=== PATIENT | female | born 1985 | race African-American/Black ===

== ENCOUNTER → 2017-09-10 | Outpatient (CLI) | payer SELFPAY ==
--- NOTE | 2017-09-10 17:25 | RADIOLOGY REPORT (SQ) ---
EXAM DESCRIPTION: U/S OB TRANSVAGINAL W/O DOP COMPLETED DATE/TIME: 09/10/2017 3:30 pm REASON FOR STUDY: ENCOUNTER FOR SUPERVISION OF OTHER NORMAL , FIRST TRIMESTER Z34.81 ENCOU NTER FOR SUPRVSN OF NORMAL , FIRST TRIM COMPARISON: None. TECHNIQUE: Transvaginal static and realtime grayscale images acquired of the pelvis. Additional yoly cted spectral and color Doppler images recorded. All images stored on PACs. bHCG: Not available. LIMITATIONS: None. FINDINGS: No intrauterine gestation is seen. UTERUS: 8.8 x 5.8 x 4.2 cm. No masses or anomalies. Endometrium measures 11 mm. CERVICAL LENGTH: Not applicable. Less than 6 weeks. Closed. RIGHT ADNEXA: 3.5 x 3.5 x 2.9 cm. Contains a 2.8 x 3 x 2.3 cm complex cyst. No adnexal free fluid. No adnexal masses. LEFT ADNEXA: Not seen. No adnexal free fluid. No adnexal masses. FREE FLUID: None. OTHER: No other significant finding. IMPRESSION: There is no intrauterine gestation. There is a 2.8 x 3.0 x 2.3 cm complex cyst on the right ovary. (if there is still a positive pregnan cy test then certainly an ectopic cannot be excluded.) TECHNICAL DOCUMENTATION: JOB ID: [id number] [employer]- All Rights Reserved
== END ==
LOC: RAD 14:50
PROVIDERS: ATTEND Nurse Practitioner Women's Health
DX: Z34.81 Encounter for supervision of other normal pregnancy, first trimester (principal)
CPT/HCPCS: 76817

== ENCOUNTER 2018-06-05 07:12 | Emergency (ER) | payer SELFPAY ==
[2018-06-05 08:05] LABS: ABSOLUTE EOSINOPHILS # (AUTO) 0.3 10^3/uL (0.0-0.6); ABSOLUTE LYMPHOCYTES (AUTO) 1.4 10^3/uL (0.5-4.7); ABSOLUTE MONOCYTES (AUTO) 0.5 10^3/uL (0.1-1.4); ABSOLUTE NEUT (AUTO) 5.2 10^3/uL (1.7-8.2); BASOPHILS % (AUTO) 0.5 % (0-2); EOSINOPHILS % (AUTO) 3.4 % (0-6); HEMATOCRIT 35.9 % (36.0-47.0); HEMOGLOBIN 12.4 g/dL (12.0-15.5); LYMPHOCYTES % (AUTO) 18.6 % (13-45); MEAN CORPUSCULAR HEMOGLOBIN 29.6 pg (27.0-33.4); MEAN CORPUSCULAR HGB CONC 34.4 g/dL (32.0-36.0); MEAN CORPUSCULAR VOLUME 86 fl (80-97); PLATELET COUNT 211 10^3/uL (150-450); RED BLOOD COUNT 4.17 10^6/uL (3.72-5.28); RED CELL DISTRIBUTION WIDTH 15.1 % (11.5-14.0); SEGMENTED NEUTROPHILS % (AUTO) 70.5 % (42-78); TOTAL CELLS COUNTED % (AUTO) 100 %; WHITE BLOOD COUNT 7.4 10^3/uL (4.0-10.5)
[2018-06-05 08:19] LABS: ANION GAP 10 (5-19); BLOOD UREA NITROGEN 14 mg/dL (7-20); CALCIUM 9.2 mg/dL (8.4-10.2); CARBON DIOXIDE 27 mmol/L (22-30); CHLORIDE 107 mmol/L (98-107); GLUCOSE 82 mg/dL (75-110); SODIUM 144.1 mmol/L (137-145)
[2018-06-05 09:04] LABS: APPEARANCE,URINE SLIGHTLY-CLOUDY; BILIRUBIN,URINE NEGATIVE (NEGATIVE); COLOR,URINE YELLOW; GLUCOSE, URINE NEGATIVE (NEGATIVE); KETONES,URINE NEGATIVE (NEGATIVE); LEUKOCYTE ESTERASE,URINE NEGATIVE (NEGATIVE); NITRITE,URINE NEGATIVE (NEGATIVE); PROTEIN,URINE NEGATIVE (NEGATIVE); URINE SPECIFIC GRAVITY 1.021
--- NOTE | 2018-06-05 09:47 | RADIOLOGY REPORT (SQ) ---
EXAM DESCRIPTION: U/S OB TRANSVAGINAL W/O DOP COMPLETED DATE/TIME: 06/05/2018 9:31 am REASON FOR STUDY: llq pain, hcg positive, hx ectopic COMPARISON: None. TECHNIQUE: Transvaginal static and realtime grayscale images acquired of the pelvis. Additional yoly cted spectral and color Doppler images recorded. All images stored on PACs. BHC.75 LIMITATIONS: None. FINDINGS: UTERUS: No visualized intrauterine . RIGHT ADNEXA: Normal ovary with normal vascular flow. No adnexal free fluid. No adnexal masses. LEFT ADNEXA: Normal ovary with normal vascular flow. No adnexal free fluid. No adnexal masses. FREE FLUID: Small volume of free fluid OTHER: No other significant finding. IMPRESSION: NO VISUALIZED INTRA- OR EXTRAUTERINE . ECTOPIC CANNOT BE EXCLUDED. Particularly since there is a history of ectopic . FOLLOW-UP ULTRASOUND AND SERIAL BHCG LEVELS STRONGLY RECOMMENDED TO ACCURATELY ASSESS STATU S. TECHNICAL DOCUMENTATION: JOB ID: [id number] [employer]- All Rights Reserved Reading location - IP/workstation name: [email or web address]
--- NOTE | 2018-06-05 09:54 | ER Document Report ---
ED GI/ - General Chief Complaint: Vag Bleeding, +preg <12wks Stated Complaint: CRAMPING/BLEEDING Time Seen by Provider: 06/05/18 07:31 Mode of Arrival: Ambulatory Information source: Patient Notes: Patient is a 32-year-old female who presents to the ER today for 2 weeks of spotting after having what she believed was a normal period 2 weeks ago. Patient states that she has irregular periods and so was not surprised when she got her menstrual cycle 2 weeks ago, however states that she has been lightly spotting since the menstrual cycle was supposed to have ended. Patient admits to some left lower quadrant cramping as well. Patient did take test at home which was positive. Patient has a history of 1 ectopic and one miscarriage along with one living child. Patient still has both of her tubes, states that they gave her methotrexate with the previous ectopic. TRAVEL OUTSIDE OF THE [place] IN LAST 30 DAYS: No - Related Data Allergies/Adverse Reactions: No Known Allergies Allergy (Unverified 06/05/18 08:09) Past Medical History - General Information source: Patient - Social History Smoking Status: Never Smoker Chew tobacco use (# tins/day): No Frequency of alcohol use: None Drug Abuse: None Family History: Reviewed & Not Pertinent Patient has suicidal ideation: No Patient has homicidal ideation: No Renal/ Medical History: Denies: Hx Peritoneal Dialysis Review of Systems - Review of Systems Constitutional: No symptoms reported EENT: No symptoms reported Cardiovascular: No symptoms reported Respiratory: No symptoms reported Gastrointestinal: No symptoms reported Genitourinary: No symptoms reported Female Genitourinary: See HPI Musculoskeletal: No symptoms reported Skin: No symptoms reported Hematologic/Lymphatic: No symptoms reported Neurological/Psychological: No symptoms reported Physical Exam - Vital signs Vitals: Temp Pulse Resp BP Pulse Ox 97.8 F 81 16 104/60 100 06/05/18 07:18 06/05/18 07:18 06/05/18 07:18 06/05/18 07:18 06/05/18 07:18 - Notes Notes: PHYSICAL EXAMINATION: GENERAL: Well-appearing and in no acute distress. HEAD: Atraumatic, normocephalic. EYES: Pupils equal round and reactive to light, extraocular movements intact, sclera anicteric, conjunctiva are normal. NECK: Normal range of motion, supple without lymphadenopathy LUNGS: CTAB and equal. No wheezes rales or rhonchi. HEART: Regular rate and rhythm without murmurs ABDOMEN: Soft, no tenderness. No guarding, no rebound BACK: no vertebral tenderness, normal ROM GI/: no CVA tenderness EXTREMITIES: Normal range of motion, no pitting edema. No cyanosis. NEUROLOGICAL: Cranial nerves grossly intact. Normal sensory/motor exams. PSYCH: Normal mood, normal affect. SKIN: Warm, Dry, normal turgor, no rashes or lesions noted Course - Re-evaluation Re-evalutation: 06/05/18 10:05 Patient looks very well and has no tenderness on abdominal exam to the left lower quadrant or otherwise, hCG is 415 today. Ultrasound was performed due to history of ectopic and complaint of left lower quadrant pain, however was to early to see anything in the tubes or uterus. Patient given a signed order to come back in 2 days for repeat hCG and was told to check back and if she was still having pain at that time or if the pain had worsened to the left lower quadrant. Patient understands that she still may have an ectopic . Patient was given women's health information to follow-up with. Patient happy with plan. - Vital Signs Vital signs: Temp Pulse Resp BP Pulse Ox 97.8 F 81 16 104/60 100 06/05/18 07:18 06/05/18 07:18 06/05/18 07:18 06/05/18 07:18 06/05/18 07:18 - Laboratory Result Diagrams: 06/05/18 07:50 06/05/18 07:50 Laboratory results interpreted by me: 06/05/18 06/05/18 06/05/18 07:50 07:50 08:47 Hct 35.9 L RDW 15.1 H Beta HCG, Quant 415.75 H Urine Blood MODERATE H Urine Urobilinogen 2.0 H Urine Ascorbic Acid 40 H Discharge - Discharge Clinical Impression: Positive blood test, LLQ pain Condition: Stable Disposition: HOME, SELF-CARE Additional Instructions: Return immediately for any new or worsening symptoms. Follow up with primary care provider, call tomorrow to make followup appointment. Return in 2 days for repeat lab draw to check your levels. Return immediately if you have worsening pain to the left lower abdomen. Forms: Follow-Up Laboratory Testing Referrals: [facility] [Provider Group] - Follow up as needed
[2018-06-05 10:04] VITALS: BP 103/59
== END 2018-06-05 10:04 | disposition home or self-care (01) ==
LOC: ER 07:12
DX: O46.91 Antepartum hemorrhage, unspecified, first trimester (principal); R10.32 Left lower quadrant pain; Z3A.00 Weeks of gestation of pregnancy not specified
CPT/HCPCS: 36415; 76817; 80048; 81001; 84702; 85025; 86900; 86901; 99284

== ENCOUNTER 2018-06-16 15:39 | Emergency (ER) | payer SELFPAY ==
--- NOTE | 2018-06-16 16:19 | ER Document Report ---
ED Medical Screen (RME) - General Chief Complaint: Abdominal Pain Stated Complaint: ABDONIMAL PAIN Time Seen by Provider: 06/16/18 16:06 Notes: RAPID MEDICAL EVALUATION DISCLOSURE I have seen this patient as part of a Rapid Medical Evaluation and, if applicable, placed any initially appropriate orders. The patient will be seen and fully evaluated, including a full history and physical exam, by a provider ( in Main ED or Fast Track) when a room becomes available. 32-year-old female here with several weeks of abdominal pain, left lower, and vaginal bleeding, now resolved, and was sent here by her [employer]INEER for "abnormal hormone levels". She has a history of ectopic and was seen here several weeks ago for possible ectopic however the ultrasound did not show any abnormalities. EXAM No appreciable abdominal TTP TRAVEL OUTSIDE OF THE [place] IN LAST 30 DAYS: No - Related Data Allergies/Adverse Reactions: No Known Allergies Allergy (Unverified 06/05/18 08:09) Past Medical History - Social History Chew tobacco use (# tins/day): No Frequency of alcohol use: None Drug Abuse: None Renal/ Medical History: Denies: Hx Peritoneal Dialysis Past Surgical History: Reports: Hx Section Physical Exam - Vital signs Vitals: Temp Pulse Resp BP Pulse Ox 98.7 F 83 16 110/62 99 06/16/18 15:58 06/16/18 15:58 06/16/18 15:58 06/16/18 15:58 06/16/18 15:58 Course - Vital Signs Vital signs: Temp Pulse Resp BP Pulse Ox 98.7 F 83 16 110/62 99 06/16/18 15:58 06/16/18 15:58 06/16/18 15:58 06/16/18 15:58 06/16/18 15:58
[2018-06-16 17:00] LABS: ABSOLUTE EOSINOPHILS # (AUTO) 0.2 10^3/uL (0.0-0.6); ABSOLUTE LYMPHOCYTES (AUTO) 1.6 10^3/uL (0.5-4.7); ABSOLUTE MONOCYTES (AUTO) 0.6 10^3/uL (0.1-1.4); ABSOLUTE NEUT (AUTO) 6.6 10^3/uL (1.7-8.2); BASOPHILS % (AUTO) 0.3 % (0-2); EOSINOPHILS % (AUTO) 2.7 % (0-6); HEMATOCRIT 37.2 % (36.0-47.0); HEMOGLOBIN 12.4 g/dL (12.0-15.5); LYMPHOCYTES % (AUTO) 17.8 % (13-45); MEAN CORPUSCULAR HEMOGLOBIN 29.1 pg (27.0-33.4); MEAN CORPUSCULAR HGB CONC 33.4 g/dL (32.0-36.0); MEAN CORPUSCULAR VOLUME 87 fl (80-97); MONOCYTES % (AUTO) 6.1 % (3-13); PLATELET COUNT 269 10^3/uL (150-450); RED BLOOD COUNT 4.26 10^6/uL (3.72-5.28); RED CELL DISTRIBUTION WIDTH 15.2 % (11.5-14.0); SEGMENTED NEUTROPHILS % (AUTO) 73.1 % (42-78); TOTAL CELLS COUNTED % (AUTO) 100 %; WHITE BLOOD COUNT 9.1 10^3/uL (4.0-10.5)
[2018-06-16 17:23] LABS: ANION GAP 12 (5-19); BLOOD UREA NITROGEN 11 mg/dL (7-20); CALCIUM 9.8 mg/dL (8.4-10.2); CARBON DIOXIDE 29 mmol/L (22-30); CHLORIDE 103 mmol/L (98-107); GLUCOSE 77 mg/dL (75-110); POTASSIUM 4.3 mmol/L (3.6-5.0); SODIUM 143.5 mmol/L (137-145)
[2018-06-16 17:24] LABS: AMORPHOUS SEDIMENT,URINE TRACE /HPF; APPEARANCE,URINE CLOUDY; BILIRUBIN,URINE NEGATIVE (NEGATIVE); COLOR,URINE YELLOW; GLUCOSE, URINE NEGATIVE (NEGATIVE); KETONES,URINE NEGATIVE (NEGATIVE); LEUKOCYTE ESTERASE,URINE NEGATIVE (NEGATIVE); NITRITE,URINE NEGATIVE (NEGATIVE); PROTEIN,URINE NEGATIVE (NEGATIVE); URINE SPECIFIC GRAVITY 1.017; UROBILINOGEN,URINE NEGATIVE mg/dL (<2.0)
--- NOTE | 2018-06-16 17:33 | RADIOLOGY REPORT (SQ) ---
EXAM DESCRIPTION: U/S OB TRANSVAGINAL W/O DOP COMPLETED DATE/TIME: 06/16/2018 5:16 pm REASON FOR STUDY: sent by OB for ?ectopic COMPARISON: None. TECHNIQUE: Transvaginal and transabdominal static and realtime grayscale images acquired of the pelv is. Additional selected spectral and color Doppler images recorded. All images stored on PACs. BHCG: Not available. LIMITATIONS: None. FINDINGS: UTERUS: No visualized intrauterine . RIGHT ADNEXA: Normal ovary with normal vascular flow. No adnexal free fluid. No adnexal masses. LEFT ADNEXA: Normal ovary with normal vascular flow. No adnexal free fluid. Nonspecific echogenic area adjacent to the left ovary. Measures 1.8 cm. No clearcut vascular flow. FREE FLUID: Free fluid in the cul de sac. Fluid within the cervix. OTHER: No other significant finding. IMPRESSION: NO VISUALIZED INTRA- OR EXTRAUTERINE . bHCG LEVEL NOT AVAILABLE FOR CORRELATION WITH US FINDINGS. ECTOPIC CANNOT BE EXCLUDED. Questionable area in the left adnexum. FOLLOW-UP ULTRASOUND AND SERIAL BHCG LEVELS STRONGLY RECOMMENDED TO ACCURATELY ASSESS STATU S. TECHNICAL DOCUMENTATION: JOB ID: [id number] [employer]- All Rights Reserved Reading location - IP/workstation name: [email or web address]
--- NOTE | 2018-06-16 19:40 | ER Document Report ---
ED General - General Chief Complaint: Abdominal Pain Stated Complaint: ABDONIMAL PAIN Time Seen by Provider: 06/16/18 16:06 Notes: Patient is a 32-year-old female at unknown gestational age with a history of ectopic who presents with 3 weeks of left lower abdominal pain. She states that there is potential concern of ectopic that she was referred to the emergency department by the women's clinic based on an abnormal trend of her quantitative beta hCG levels. She denies anything is new or different about her symptoms today. She does notice a dull, aching, constant pain to her left lower abdomen. Nothing improves or worsens this pain. She states this does feel somewhat similar when she had an ectopic in the past which was able to be successfully treated with methotrexate. No vaginal bleeding, vaginal discharge, or dysuria. No fever or constitutional symptoms. TRAVEL OUTSIDE OF THE [place] IN LAST 30 DAYS: No - Related Data Allergies/Adverse Reactions: No Known Allergies Allergy (Unverified 06/05/18 08:09) Past Medical History - General Information source: Patient - Social History Smoking Status: Never Smoker Chew tobacco use (# tins/day): No Frequency of alcohol use: None Drug Abuse: None Lives with: Spouse/Significant other Family History: Reviewed & Not Pertinent Patient has suicidal ideation: No Patient has homicidal ideation: No Renal/ Medical History: Denies: Hx Peritoneal Dialysis Past Surgical History: Reports: Hx Section Review of Systems - Review of Systems Notes: Constitutional: Negative for fever. HENT: Negative for sore throat. Eyes: Negative for visual changes. Cardiovascular: Negative for chest pain. Respiratory: Negative for shortness of breath. Gastrointestinal: Positive for abdominal pain Genitourinary: Negative for dysuria. Musculoskeletal: Negative for back pain. Skin: Negative for rash. Neurological: Negative for headaches, weakness or numbness. 10 point ROS negative except as marked above and in HPI. Physical Exam - Vital signs Vitals: Temp Pulse Resp BP Pulse Ox 98.7 F 83 16 110/62 99 06/16/18 15:58 06/16/18 15:58 06/16/18 15:58 06/16/18 15:58 06/16/18 15:58 Interpretation: Normal Notes: PHYSICAL EXAMINATION: GENERAL: Well-appearing, well-nourished and in no acute distress. HEAD: Atraumatic, normocephalic. EYES: Pupils equal round and reactive to light, extraocular movements intact, sclera anicteric, conjunctiva are normal. ENT: nares patent, oropharynx clear without exudates. Moist mucous membranes. NECK: Normal range of motion, supple without lymphadenopathy LUNGS: Breath sounds clear to auscultation bilaterally and equal. No wheezes rales or rhonchi. HEART: Regular rate and rhythm without murmurs ABDOMEN: Soft, nontender, normoactive bowel sounds. No guarding, no rebound. No masses appreciated. EXTREMITIES: Normal range of motion, no pitting or edema. No cyanosis. NEUROLOGICAL: No focal neurological deficits. Moves all extremities spontaneously and on command. PSYCH: Normal mood, normal affect. SKIN: Warm, Dry, normal turgor, no rashes or lesions noted. Course - Re-evaluation Re-evalutation: 06/16/18 19:37 Patient presents with approximately 3 weeks to 1 month of left-sided adnexal tenderness with hCG levels that are not up trending appropriately. Transvaginal ultrasound does show possible abnormal area in the left adnexa. I did discuss with Dr. Issa who agrees that this is an ectopic . She has requested that we do a pharmacy based dose of methotrexate and then the patient will follow-up in 4 days in the women's health clinic for a second dose. The patient is agreeable to this plan. At this time will discharge with return precautions and follow-up recommendations. Verbal discharge instructions given a the bedside and opportunity for questions given. Medication warnings reviewed. Patient is in agreement with this plan and has verbalized understanding of return precautions and the need for primary care follow-up in the next 24-72 hours. - Vital Signs Vital signs: Temp Pulse Resp BP Pulse Ox 98.7 F 70 16 108/65 99 06/16/18 15:58 06/16/18 21:00 06/16/18 21:00 06/16/18 21:00 06/16/18 21:00 - Laboratory Result Diagrams: 06/16/18 16:36 06/16/18 16:36 Laboratory results interpreted by me: 06/16/18 06/16/18 06/16/18 16:33 16:36 16:36 RDW 15.2 H Beta HCG, Quant 1328.00 H Urine Ascorbic Acid 20 H - Diagnostic Test Radiology reviewed: Reports reviewed Discharge - Discharge Clinical Impression: Lower abdominal pain Ectopic Qualifiers: Location of ectopic : unspecified location Intrauterine status: without intrauterine Qualified Code(s): O00.90 - Unspecified ectopic without intrauterine Condition: Good Disposition: HOME, SELF-CARE Additional Instructions: Your seen today for an ectopic on your left side. You were given your first dose of methotrexate here in the emergency department per the instruction of Dr. Issa. You need to follow-up in the women's clinic in 4 days for your repeat dose of methotrexate. Return to the emergency department immediately if you have worsening of your pain, fever greater than 100.4F, bleed through more than 2 pads per hour for more than 2 hours in a row, pass out , have persistent vomiting, or have any other symptoms that are worrisome to you. Referrals: JAMI ISSA MD [ACTIVE STAFF] - 06/20/18
[2018-06-16] MEDS ORDERED: METHOTREXATE SODIUM INJ/PF 50 MG/2 ML IM PRN (19:50)
[2018-06-16 21:59] VITALS: BP 108/65
== END 2018-06-16 21:25 | disposition home or self-care (01) ==
LOC: ER 15:39
DX: O00.90 Unspecified ectopic pregnancy without intrauterine pregnancy (principal)
CPT/HCPCS: 99284; 96372; 36415; 84702; 85025; 80048; 81001; 76817; J9260

== ENCOUNTER 2019-09-15 06:53 | Emergency (ER) | payer SELFPAY ==
--- NOTE | 2019-09-15 07:28 | ER Document Report ---
ED General - General Chief Complaint: Headache Stated Complaint: HEAD,NECK/BACK PAIN Time Seen by Provider: 09/15/19 07:12 Notes: 34-year-old female presents to the ER complaining of several months of neck and back pain. The patient denies any specific trauma or injury. Is complains of generalized aches in her neck and her upper back. The patient denies any extremity numbness tingling or weakness. States occasionally she will get headaches because her neck hurts so bad. She describes it as generalized aching she gets in her neck and back. Denies any blurred vision denies extremity numbness tingling weakness denies chest pain denies shortness of breath denies cough. Denies hematuria or dysuria. [place] fever or chills. TRAVEL OUTSIDE OF THE [place] IN LAST 30 DAYS: No - Related Data Allergies/Adverse Reactions: No Known Allergies Allergy (Verified 05/16/19 16:51) Past Medical History - Social History Smoking Status: Current Every Day Smoker Family History: Reviewed & Not Pertinent Patient has suicidal ideation: No Patient has homicidal ideation: No Renal/ Medical History: Denies: Hx Peritoneal Dialysis Past Surgical History: Reports: Hx Section Review of Systems - Review of Systems Constitutional: denies: Chills, Fever EENT: No symptoms reported Cardiovascular: No symptoms reported Respiratory: No symptoms reported Gastrointestinal: No symptoms reported Musculoskeletal: Back pain, Neck pain Skin: denies: Rash Neurological/Psychological: Headaches -: Yes All other systems reviewed and negative Physical Exam - Vital signs Vitals: Temp Pulse Resp BP Pulse Ox 98.3 F 102 H 16 105/61 99 09/15/19 07:00 09/15/19 07:00 09/15/19 07:00 09/15/19 07:00 09/15/19 07:00 - Notes Notes: GENERAL_APPEARANCE: well_nourished, alert, cooperative, no_acute_distress, no_obvious_discomfort. VITALS: reviewed, see vital signs table. HEAD: no_swelling\tenderness on the head. EYES: PERRL, EOMI, conjunctiva_clear. NOSE: no_nasal_discharge. MOUTH: (-)decreased moisture. THROAT: no_tonsilar_inflammation, no_airway_obstruction. no_lymphadenopathy NECK: supple, diffuse paraspinal_neck_tenderness, (-)thyromegaly. BACK: Diffuse thoracic paraspinal_back_tenderness. CHEST_WALL: no_chest_tenderness. LUNGS: no_wheezing, no_rales, no_rhonchi, (-)accessory muscle use, good air exchange bilateral. HEART: normal_rate, normal_rhythm, normal_S1, normal_S2, (-)S3, (-)S4, no_murmur, no_rub. ABDOMEN: normal_BS, soft, no_abd_tenderness, (-)guarding, (-)rebound, no_organomegaly, no_abd_masses. EXTREMITIES: strength 5/5 in all_extremities, good pulses in all_extremities, no_swelling\tenderness in the extremities, no_edema. SKIN: warm, dry, good_color, no_rash. MENTAL_STATUS: speech_clear, oriented_X_3, normal_affect, responds_appropriately to questions. NEURO: Neg Motor or Sensory Deficits on exam, CN 2-12 intact, DTR 2+ symmetric x 4, No cerbellar signs Course - Re-evaluation Re-evalutation: 09/15/19 07:27 34-year-old female presents with nonspecific neck and upper back pain. We will do some generalized x-rays check a urinalysis. Really there is nothing on exam that is concerning. No neuro deficits. Patient does not have any high risk behavior including IV drug use. Denies fever chills on exam denies night sweats. Denies saddle paresthesias foot drop motor weakness. No numbness or tingling. Suspicion is low for any kind of epidural hematoma or abscess. Suspicion is low for cauda equina syndrome. 09/15/19 09:31 X-ray showed no fractures or other significant abnormalities is a little bit of scoliotic change in the thoracic spine but nothing significant. Patient will be advised follow-up with primary care for further referral if needed will prescribe Flexeril and diclofenac for home. - Vital Signs Vital signs: Temp Pulse Resp BP Pulse Ox 98.3 F 102 H 16 105/61 99 09/15/19 07:00 09/15/19 07:00 09/15/19 07:00 09/15/19 07:00 09/15/19 07:00 - Laboratory Laboratory results interpreted by me: 09/15/19 07:30 Urine Ascorbic Acid 40 H - Diagnostic Test Radiology reviewed: Reports reviewed Radiology results interpreted by me: 09/15/19 09:30 Cervical Spine X-Ray 09/15/19 07:23 IMPRESSION: 1. No fracture or static subluxation of the cervical spine. Disc spaces and vertebral body heights are preserved. 2. No fracture or dislocation of the thoracic spine. Disc spaces and vertebral body heights are preserved. There is a minimal, less than 10 degree dextroscoliosis of the upper thoracic spine, apex approximately T4. 3. Spinal disc and neural foraminal pathology may be further evaluated by MRI if indicated by localizing signs and symptoms. Thoracic Spine X-Ray 09/15/19 07:23 IMPRESSION: 1. No fracture or static subluxation of the cervical spine. Disc spaces and vertebral body heights are preserved. 2. No fracture or dislocation of the thoracic spine. Disc spaces and vertebral body heights are preserved. There is a minimal, less than 10 degree dextroscoliosis of the upper thoracic spine, apex approximately T4. 3. Spinal disc and neural foraminal pathology may be further evaluated by MRI if indicated by localizing signs and symptoms. Discharge - Discharge Clinical Impression: Scoliosis concern Back pain Qualifiers: Back pain location: thoracic back pain Chronicity: acute Back pain laterality: midline Qualified Code(s): M54.6 - Pain in thoracic spine Condition: Good Disposition: HOME, SELF-CARE Instructions: Low Back Pain ([facility]) Prescriptions: Cyclobenzaprine HCl [Flexeril 10 mg Tablet] 10 mg PO TIDP PRN #15 tab PRN Reason: Diclofenac Sodium [Voltaren] 75 mg PO BID PRN #20 tablet.dr BELTRÁN Reason: Pain Scale Of 5
[2019-09-15 08:00] LABS: APPEARANCE,URINE CLOUDY; BILIRUBIN,URINE NEGATIVE (NEGATIVE); COLOR,URINE YELLOW; GLUCOSE, URINE NEGATIVE (NEGATIVE); KETONES,URINE NEGATIVE (NEGATIVE); LEUKOCYTE ESTERASE,URINE NEGATIVE (NEGATIVE); NITRITE,URINE NEGATIVE (NEGATIVE); PROTEIN,URINE NEGATIVE (NEGATIVE); URINE SPECIFIC GRAVITY 1.027; UROBILINOGEN,URINE NEGATIVE mg/dL (<2.0)
--- NOTE | 2019-09-15 09:21 | RADIOLOGY REPORT (SQ) ---
EXAM DESCRIPTION: CERV SP 4 OR 5 VIEWS; T SPINE AP/LAT COMPLETED DATE/TIME: 09/15/2019 9:04 am REASON FOR STUDY: back and neck pain COMPARISON: None. NUMBER OF VIEWS: Five views of the cervical spine, two views of the thoracic spine. TECHNIQUE: AP, lateral, obliques and odontoid radiographic images acquired of the cervical spine. A P and lateral radiographic images acquired of the thoracic spine. LIMITATIONS: None. FINDINGS: MINERALIZATION: Normal. ALIGNMENT: Anatomic alignment of the cervical spine. There is a minimal, less than 10 degree dextros coliosis of the upper thoracic spine, apex approximately T4. VERTEBRAE: Vertebral bodies of normal height. DISCS: No significant osteophytes or sclerosis. Disc height maintained. FORAMINA: No osteophytes or foraminal narrowing. LATERAL AND POSTERIOR ELEMENTS: Facets, lateral masses and spinous processes without significant find ings. HARDWARE: None in the spine. SOFT TISSUES: No masses or calcifications. Lung apices clear. OTHER: No other significant finding. IMPRESSION: 1. No fracture or static subluxation of the cervical spine. Disc spaces and vertebral body heights are preserved. 2. No fracture or dislocation of the thoracic spine. Disc spaces and vertebral body heights are pre served. There is a minimal, less than 10 degree dextroscoliosis of the upper thoracic spine, apex ap proximately T4. 3. Spinal disc and neural foraminal pathology may be further evaluated by MRI if indicated by muriel long signs and symptoms. TECHNICAL DOCUMENTATION: JOB ID: [id number] [employer]- All Rights Reserved Reading location - IP/workstation name: [email or web address]
[2019-09-15 10:06] VITALS: BP 97/60
== END 2019-09-15 10:15 | disposition home or self-care (01) ==
LOC: ER 06:53
DX: M54.6 Pain in thoracic spine (principal); R51 Headache; M54.2 Cervicalgia; M54.9 Dorsalgia, unspecified; F17.200 Nicotine dependence, unspecified, uncomplicated
CPT/HCPCS: 72050; 72070; 81001; 81025; 99284

== ENCOUNTER 2019-10-16 07:57 | Emergency (ER) | payer SELFPAY ==
[2019-10-16] MEDS ORDERED: DEXAMETHASONE SOD PHOS INJ 10 MG/1 ML VIAL IM ONE (09:22)
[2019-10-16] MEDS ORDERED: IPRATROPIUM/ALBUTEROL 0.5-2.5 MG/3 ML AMPUL NEB ONE (09:22)
--- NOTE | 2019-10-16 09:45 | ER Document Report ---
HPI - HPI Time Seen by Provider: 10/16/19 09:01 Pain Level: Denies Context: Healthy 34-year-old female presents with a cough x1 week. Patient states that it started last Saturday and she had a sore throat over the last weekend. Patient states that the cough is persisted and is not productive. Patient denies fevers or chills, denies neck stiffness denies ear pain, denies headache, denies sick contacts, denies nausea or vomiting, denies abdominal pain. No urinary s ymptoms. Patient is not a smoker. Patient states that she works at an [employer]. - EENT EENT: REPORTS: Sore Throat - REPRODUCTIVE Reproductive: DENIES: : Past Medical History - Social History Smoking Status: Current Every Day Smoker Chew tobacco use (# tins/day): No Frequency of alcohol use: None Drug Abuse: None Family History: Reviewed & Not Pertinent Patient has suicidal ideation: No Patient has homicidal ideation: No Renal/ Medical History: Denies: Hx Peritoneal Dialysis Past Surgical History: Reports: Hx Section Vertical Provider Document - CONSTITUTIONAL Notes: PHYSICAL EXAMINATION: Reviewed vital signs and charting by RN GENERAL: Alert, interacts well. No acute distress. HEAD: Normocephalic, atraumatic. EYES: Pupils equal and round. Extraocular movements intact. ENT: Oral mucosa moist, tongue midline. NECK: Full range of motion. Trachea midline. LUNGS: Inspiratory wheezing left upper and lower lobes, no rales or rhonchi, no crackles. No respiratory distress. HEART: Regular rate and rhythm. No murmur ABDOMEN: soft, non-tender. No distention. Bowel sounds present EXTREMITIES: Moves all 4 extremities spontaneously. No edema, No cyanosis. PSYCH: Normal affect, normal mood. SKIN: Warm, dry, normal turgor. No rashes or lesions noted. - INFECTION CONTROL TRAVEL OUTSIDE OF THE [place] IN LAST 30 DAYS: No Course - Re-evaluation Re-evalutation: 10/16/19 09:25 Presentation is most consistent with a viral upper respiratory infection. Patient is overall well appearance, vitals within normal limits, well-hydrated. Patient denies any headache, neck pain, and has no evidence of meningismus on examination. Lungs are clear bilaterally. No evidence of respiratory distress. Based on clinical exam and history, I do not suspect an acute pneumonia, meningitis, strep pharyngitis, or an acute encephalitis. No laboratory or im aging testing is indicated at this time. Patient received 1 DuoNeb with interval improvement and a shot of Decadron. Will discharge patient with return precautions and followup recommendations. They are in agreement this plan have verbalized understanding return precautions. 10/16/19 10:18 - Vital Signs Vital signs: Temp Pulse Resp BP Pulse Ox 98.3 F 94 20 106/57 L 99 10/16/19 08:08 10/16/19 08:08 10/16/19 08:08 10/16/19 08:08 10/16/19 08:08 Discharge - Discharge Clinical Impression: Cough Upper respiratory infection Qualifiers: URI type: unspecified URI Qualified Code(s): J06.9 - Acute upper respiratory infection, unspecified Condition: Good Disposition: HOME, SELF-CARE Additional Instructions: You have been seen and treated in the emergency department for an upper respiratory infection. These are typically caused by viruses and do not respond to antibiotics. Please make sure you using any prescription medications as prescribed. Please also continue to take [id number] Tylenol and Motrin for your generalized body aches, fever. Please stay well-hydrated and get plenty of rest. Please follow-up with your primary care provider in the next 24 to 48 hours. Please return to the emergency room should you have any other concerning symptoms. Forms: Return to Work
[2019-10-16] MEDS ORDERED: BENZONATATE 100 MG CAPSULE PO ONE (10:19)
[2019-10-16 10:29] VITALS: BP 108/50
== END 2019-10-16 10:29 | disposition home or self-care (01) ==
LOC: ER 07:57
DX: J06.9 Acute upper respiratory infection, unspecified (principal); R05 Cough; J02.9 Acute pharyngitis, unspecified; R06.2 Wheezing
CPT/HCPCS: J1100; J7620; 94640; 96372; 99283

== ENCOUNTER 2020-11-16 08:15 | Emergency (ER) | payer OTHER ==
--- NOTE | 2020-11-16 08:36 | ER Document Report ---
ED General - General Chief Complaint: Vaginal Bleeding Stated Complaint: VAGINAL BLEEDING,ABDOMINAL PAIN Time Seen by Provider: 11/16/20 08:20 Primary Care Provider: [facility] [Provider Group] - Follow up as needed [facility] [Provider Group] - Follow up as needed SARY MCKINNEY MD [ACTIVE STAFF] - Follow up as needed TRAVEL OUTSIDE OF THE [place] IN LAST 30 DAYS: No - HPI Notes: Patient is a 35-year-old female with history of ovarian cysts who presents with consistent vaginal bleeding for the past 13-14 days. She states she typically has irregular periods and reports her last menstrual period was at the beginning of September. She states this is heavier and longer than her typical periods. Patient reports lower abdominal cramping and back pain. She states she had a sharp pain in the left lower quadrant that has now improved to a dull pain. She reports dysuria but denies chest pain, shortness of breath, nausea, vomiting, diarrhea, fever, vaginal pain and vaginal discharge. She is unsure if she could be . - Related Data Allergies/Adverse Reactions: No Known Allergies Allergy (Verified 11/16/20 10:42) Past Medical History - General Information source: Patient - Social History Smoking Status: Unknown if Ever Smoked Family History: Reviewed & Not Pertinent Renal/ Medical History: Denies: Hx Peritoneal Dialysis Past Surgical History: Reports: Hx Section Review of Systems - Review of Systems Constitutional: No symptoms reported EENT: No symptoms reported Cardiovascular: No symptoms reported Respiratory: No symptoms reported Gastrointestinal: See HPI Genitourinary: See HPI Female Genitourinary: See HPI Musculoskeletal: No symptoms reported Skin: No symptoms reported Hematologic/Lymphatic: No symptoms reported Neurological/Psychological: No symptoms reported Physical Exam - Vital signs Vitals: Temp Pulse Resp BP Pulse Ox 98.4 F 85 16 125/64 100 11/16/20 08:19 11/16/20 08:19 11/16/20 08:19 11/16/20 08:19 11/16/20 08:19 - Notes Notes: PHYSICAL EXAMINATION: VITALS: Vitals reviewed and within normal limits. GENERAL: Well-appearing, well-nourished and in no acute distress. HEAD: Atraumatic, normocephalic. LUNGS: Breath sounds clear to auscultation bilaterally and equal. No wheezes, rales, or rhonchi. HEART: Regular, rate, and rhythm without murmurs. ABDOMEN: Soft, nontender, normoactive bowel sounds. No guarding, no rebound. No masses appreciated. EXTREMITIES: Normal range of motion, no pitting or edema. No cyanosis. NEUROLOGICAL: No focal neurological deficits. Moves all extremities spontaneously and on command. PSYCH: Normal mood, normal affect. SKIN: Warm, Dry, normal turgor, no rashes or lesions noted. Course - Re-evaluation Re-evalutation: Presentation of vaginal bleeding and generalized, intermittent abdominal pain. Abdominal exam is benign without any focal tenderness. Vitals are normal at the time of arrival. Laboratories are unremarkable without evidence of cystitis, , or leukocytosis. Patient is overall very well in appearance. Based on clinical history and examination I do not suspect an acute appendicitis, tubo-ovarian abscess, related pathology, pelvic inflammatory disease, mesenteric ischemia, or pyelonephritis. Pelvic exam deferred by patient. Advised that the patient follow up with [facility] or PCP for further evalution of her vaginal bleeding. Discussed microcytic anemia and elevated LFTs and advised that she follow up with her PCP concerning these values and have repeat testing done. Will discharge home with return precautions and followup recommendations. - Vital Signs Vital signs: Temp Pulse Resp BP Pulse Ox 98.4 F 76 16 124/75 100 11/16/20 08:19 11/16/20 11:38 11/16/20 11:38 11/16/20 11:38 11/16/20 11:38 - Laboratory Results Result Diagrams: 11/16/20 09:43 11/16/20 09:43 Laboratory Results Interpreted: 11/16/20 11/16/20 11/16/20 09:20 09:43 09:43 Hgb 10.9 L Hct 34.1 L MCV 76 L MCH 24.3 L RDW 17.3 H AST 39 H ALT 67 H Alkaline Phosphatase 151 H Urine Protein 30 H Urine Blood LARGE H Urine Ascorbic Acid 40 H Critical Laboratory Results Reviewed: No Critical Results - Radiology Results Critical Radiology Results Reviewed: No Critical Results Discharge - Discharge Clinical Impression: Vaginal bleeding Condition: Stable Disposition: HOME, SELF-CARE Additional Instructions: You were seen today for dysfunctional uterine bleeding. This is when you have vaginal bleeding and abdominal cramping off of your normal menstrual cycle. You have been started on control pills to help regulate your cycle and control your symptoms. You need to follow-up with [facility] or your primary care physician the next 1-3 days. Return immediately if you worsening pain, you began bleeding through more than 2 pads per hour for more than 3 hours, you pass out, have persistent vomiting, develop a fever greater than 100.4F, or any other symptoms that are concerning to you. Referrals: SARY MCKINNEY MD [ACTIVE STAFF] - Follow up as needed [facility] [[facility]] - Follow up as needed [facility] [Provider Group] - Follow up as needed
--- NOTE | 2020-11-16 09:24 | RADIOLOGY REPORT (SQ) ---
EXAM DESCRIPTION: U/S NON OB PEL TV W/DOPPLER IMAGES COMPLETED DATE/TIME: 11/16/2020 9:01 am REASON FOR STUDY: vaginal bleeding COMPARISON: None. TECHNIQUE: Dynamic and static grayscale images acquired of the pelvis via transvaginal approach and recorded on PACS. Additional selected color Doppler and spectral images recorded. LIMITATIONS: None. FINDINGS: UTERUS: The uterus measures 8.3 x 4.5 x 3.8 cm. The echotexture of the myometrium is homo geneous. There is no myometrial mass. ENDOMETRIAL STRIPE: The endometrium measures 5 mm in thickness. CERVIX: The cervix measures 2.4 cm in length. There is a trace amount of fluid within the endocervic al canal. RIGHT OVARY AND DOPPLER: The right ovary measures 2.4 x 2.2 x 1.6 cm and on Doppler there is intact a rterial inflow and venous outflow within the ovarian stroma. There is no adnexal mass. LEFT OVARY AND DOPPLER: The left ovary measures 2.8 x 2.3 x 1.6 cm and on Doppler there is intact art erial inflow and venous outflow within the ovarian stroma. There is no adnexal mass. FREE FLUID: None noted. OTHER: No other findings. IMPRESSION: Trace amount of fluid within the endocervical canal. Otherwise negative pelvic ultrasou nd. TECHNICAL DOCUMENTATION: JOB ID: [id number] [employer]- All Rights Reserved Rev-04/18 Reading location - IP/workstation name: [email or web address]
[2020-11-16 09:39] LABS: APPEARANCE,URINE TURBID; BILIRUBIN,URINE NEGATIVE (NEGATIVE); COLOR,URINE YELLOW; GLUCOSE, URINE NEGATIVE (NEGATIVE); KETONES,URINE NEGATIVE (NEGATIVE); LEUKOCYTE ESTERASE,URINE NEGATIVE (NEGATIVE); NITRITE,URINE NEGATIVE (NEGATIVE); PROTEIN,URINE 30 mg/dL (NEGATIVE); URINE SPECIFIC GRAVITY 1.028; UROBILINOGEN,URINE NEGATIVE mg/dL (<2.0)
[2020-11-16 10:03] LABS: ABSOLUTE EOSINOPHILS # (AUTO) 0.2 10^3/uL (0.0-0.6); ABSOLUTE LYMPHOCYTES (AUTO) 1.4 10^3/uL (0.5-4.7); ABSOLUTE MONOCYTES (AUTO) 0.4 10^3/uL (0.1-1.4); ABSOLUTE NEUT (AUTO) 3.7 10^3/uL (1.7-8.2); BASOPHILS % (AUTO) 0.3 % (0-2); HEMATOCRIT 34.1 % (36.0-47.0); HEMOGLOBIN 10.9 g/dL (12.0-15.5); LYMPHOCYTES % (AUTO) 24.9 % (13-45); MEAN CORPUSCULAR HEMOGLOBIN 24.3 pg (27.0-33.4); MEAN CORPUSCULAR VOLUME 76 fl (80-97); MONOCYTES % (AUTO) 6.6 % (3-13); PLATELET COUNT 320 10^3/uL (150-450); RED BLOOD COUNT 4.49 10^6/uL (3.72-5.28); RED CELL DISTRIBUTION WIDTH 17.3 % (11.5-14.0); SEGMENTED NEUTROPHILS % (AUTO) 65.2 % (42-78); TOTAL CELLS COUNTED % (AUTO) 100 %; WHITE BLOOD COUNT 5.7 10^3/uL (4.0-10.5)
[2020-11-16 10:18] LABS: ALBUMIN 4.4 g/dL (3.5-5.0); ALKALINE PHOSPHATASE 151 U/L (38-126); ANION GAP 11 (5-19); ASPARTATE AMINO TRANSFERASE 39 U/L (14-36); BILIRUBIN,DIRECT 0.1 mg/dL (0.0-0.4); BILIRUBIN,TOTAL 0.6 mg/dL (0.2-1.3); BLOOD UREA NITROGEN 9 mg/dL (7-20); CALCIUM 9.5 mg/dL (8.4-10.2); CARBON DIOXIDE 25 mmol/L (22-30); CHLORIDE 106 mmol/L (98-107); GLUCOSE 88 mg/dL (75-110); POTASSIUM 4.1 mmol/L (3.6-5.0); TOTAL PROTEIN 7.9 g/dL (6.3-8.2)
[2020-11-16 11:38] VITALS: BP 124/75
== END 2020-11-16 11:38 | disposition home or self-care (01) ==
LOC: ER 08:15
DX: N93.8 Other specified abnormal uterine and vaginal bleeding (principal); R10.30 Lower abdominal pain, unspecified; M54.9 Dorsalgia, unspecified
CPT/HCPCS: 36415; 76830; 80053; 81001; 84443; 84703; 85025; 87086; 87088; 93976; 99284